=== PATIENT | male | born 1960 | race Caucasian/White ===

== ENCOUNTER → 2016-12-29 | Outpatient (CLI) | payer OTHER ==
[~2016-12-29] MED LIST: CLB/200 PO; DULO60CA44 PO; KETO2SHA; TRAZ50TA35 PO; VARD10TA PO
--- NOTE | 2016-12-29 17:53 | DIAGNOSTIC IMAGING REPORT ---
RIGHT LOWER EXTREMITY VENOUS DOPPLER CLINICAL HISTORY: Right calf tenderness. COMPARISON STUDY: No previous studies for comparison. TECHNIQUE: Sonography of the deep venous system of the right lower extremity was performed. Compression and augmentation were evaluated. FINDINGS: The right common femoral, superficial femoral and popliteal veins were compressible. Augmentation was normal. Flow was shown within the deep calf vessels. Note was made of occlusive superficial thrombus within the right greater saphenous vein that extended from the level of the mid thigh to the ankle. IMPRESSION: 1. Extensive occlusive superficial thrombus within the right greater saphenous vein. Thrombus extends from the level of the mid thigh to ankle. 2. No evidence of deep venous thrombus within the right lower extremity. Electronically signed by: Win Boudreaux M.D. 12/29/2016 5:52 PM Dictated Date/Time: 12/29/2016 5:49 PM
== END | disposition home or self-care (01) ==
LOC: C.ULTR 16:53
PROVIDERS: ATTEND Nurse Practitioner
DX: M79.661 Pain in right lower leg (principal)

== ENCOUNTER → 2017-09-09 | Outpatient (CLI) | payer SELFPAY ==
--- NOTE | 2017-09-09 14:04 | DIAGNOSTIC IMAGING REPORT ---
R VENOUS DOPP LOWER EXT UNILAT CLINICAL HISTORY: 57 years-old Male presenting with I80.3 Thrombophlebitis legM79.89 Right leg [id number] Pain. TECHNIQUE: Real-time grayscale and color and spectral Doppler ultrasound imaging of the veins of the right lower extremity was performed. Compression and augmentation were also utilized. COMPARISON: None. FINDINGS: Right: Common femoral vein: Patent. Greater saphenous vein: Patent. Deep femoral vein: Patent. Femoral vein: Patent. Popliteal vein: Patent. Calf veins: Patent. Other: Filling defect consistent with thrombus in a superficial vein along the dorsum of the right foot. IMPRESSION: 1. No evidence of deep venous thrombosis. 2. Superficial venous thrombosis along the dorsum of the right foot. Electronically signed by: Jermaine Mcneill M.D. 09/09/2017 2:03 PM Dictated Date/Time: 09/09/2017 2:02 PM
== END | disposition home or self-care (01) ==
LOC: C.ULTR 13:00
PROVIDERS: ATTEND Physician Assistant Medical
DX: M79.669 Pain in unspecified lower leg (principal); M79.89 Other specified soft tissue disorders; I80.3 Phlebitis and thrombophlebitis of lower extremities, unspecified; I82.811 Embolism and thrombosis of superficial veins of right lower extremity

== ENCOUNTER 2023-08-02 06:46 | Observation (INO) ==
--- NOTE | 2023-07-12 10:11 | PAT Medication Instructions ---
Medication Instructions Date of Service July 12, 2023 Home Medications Medication Instructions Recorded trazodone 50 mg tablet 100 mg (2 x 50 mg) PO HS PRN 04/21/23 insomnia #60 tabs multivitamin 1 tab PO QAM trazodone 50 mg tablet 100 mg (2 x 50 mg) PO HS PRN duloxetine 30 mg capsule,delayed release 30 mg PO QPM meloxicam 15 mg tablet 15 mg PO QAM ASK your surgeon for instructions meloxicam 15 mg tablet 15 mg PO QAM DO NOT take the morning of surgery multivitamin 1 tab PO QAM Take evening before surgery trazodone 50 mg tablet 100 mg (2 x 50 mg) PO HS PRN(if needed) duloxetine 30 mg capsule,delayed release 30 mg PO QPM Other Notes Nothing to eat or drink after midnight before surgery. If you have any questions please call us at [phone] or [phone] or [phone] or [phone]
--- NOTE | 2023-07-14 12:14 | Anesthesiology Consultation ---
Date of Service July 14, 2023 Assessment & Plan (1) Encounter for pre-operative examination: - Outpatient joint assessment: Patient is currently scheduled for inpatient pathway. If re-evaluated and patient/surgeon requests outpatient pathway, patient is acceptable candidate for outpatient joint program from anesthesia standpoint pending surgeon's office assessment of pt motivation/support/completion of same day joint program preop requirements. Chart Review Chart Review: Acceptable Risk for Surgery and Patient seen in Pre Admission Testing Teaching & Discussion Pre-Anesthesia Teaching/Discussion Notes: Instructed NPO after midnight before surgery, except medications with 15 cc of water. Medication instructions provided according to the PAT guidelines. History Surgery Operation Date: 08/02/23 12:30 Proposed Procedures p Left Total Hip Arthroplasty - Len Chaudhari MD Height/Weight Height: 5 ft 10 in Weight: 106.1 kg Allergies Allergy/AdvReac Type Severity Reaction Status Date / Time No Known Drug Allergies Allergy Unknown ` Verified 07/08/23 12:00 Medications Home Medications Medication Instructions Recorded Confirmed Last Taken multivitamin 1 tab PO QAM 05/05/20 07/08/23 05/04/20 trazodone 50 mg tablet 100 mg (2 x 50 mg) PO HS PRN 04/21/23 07/08/23 Unknown insomnia #60 tabs duloxetine 30 mg capsule,delayed 30 mg PO QPM 07/08/23 07/08/23 Unknown release meloxicam 15 mg tablet 15 mg PO QAM 07/08/23 07/08/23 Unknown Past Medical History Medical History (Updated 07/14/23 @ 12:16 by Shana Soto PA-C) Classic migraine with aura Depression Elevated blood-pressure reading without diagnosis of hypertension Hyperlipidemia Nicotine dependence Sarcoidosis stable Superficial thrombosis of leg right-several yrs ago Patient denies h/o stroke, seizures, heart attack, heart failure, DM, or blood transfusions. Exercise / Class Metabolic Activity II 4-5 Yardwork/Stairs/Walk up hill (denies chest discomfort or shortness of breath with 1 FOS) Past Family History Family History Father Hypertension Macular degeneration Aunt Migraine Grandmother Colorectal cancer Denies family history of Breast cancer Past Surgical History Surgical History (Updated 07/14/23 @ 12:45 by Shana Soto PA-C) H/O repair of left rotator cuff History of arthroscopy of hip left History of bronchoscopy 1990s-reaction to training agent for work-sarcoidosis diagnosed at that time S/P colonoscopy Status post right hip replacement Past Anesthesia History No Hx of Anesthesia Complications and No Family Hx of Anesthesia Complications History of PONV No Hx of PONV and No Hx of Motion Sickness Social History Smoking Status: Never smoker Do You Dip or Chew Tobacco: Yes (-advised) Smoking End Date: quit one month ago Hx Alcohol Use: No Hx Substance Use: Yes substance use type: crack/cocaine and opiates Substance Use Type Other:: percocet Last Used Substance Other:: Cocaine/percocet 09/03/2014, none since Review of Systems Patient denies chest pain, shortness of breath, dyspnea on exertion, snoring, witnessed apneas, reflux, fever, chills, cough, wheezing, or palpitations. Physical Exam Vital Signs Vitals BP 148/87 P 58 TEMP 98.2 SP02 94% on RA RESP 18 Physical Patient resting comfortably in chair in no acute distress, alert and oriented, responding appropriately throughout visit Full cervical extension range of motion without pain TMD 3.5 finger breadths Mallampati Score 2 Dentition: several caps/crowns, denies chipped or loose teeth, implants or bridges Lungs: normal respiratory effort. Good air movement, clear throughout to auscultation, no adventitious breath sounds Cardiac: regular rate and rhythm, no murmurs noted Carotid arteries: negative bruit bilat Lab Results Anesthesia Preop Results Results Anesthesia Widget: WBC 7.36 K/ul (4.8-10.8) 07/14/23 Hgb 15.2 g/dl (14.0-18.0) 07/14/23 Hct 43.4 % (42.0-52.0) 07/14/23 Plt 223 K/uL (130-400) 07/14/23 Na 138 mmol/L (136-145) 07/14/23 K 4.4 mmol/L (3.5-5.1) 07/14/23 Cl 106 mmol/L (98-107) 07/14/23 CO2 26 mmol/L (21-32) 07/14/23 BUN 20 mg/dl (6-23) 07/14/23 Creat 1.16 mg/dl (0.6-1.4) 07/14/23 Glucose Level 96 mg/dl (70-99(Fasting)) 07/14/23 PT 10.1 Seconds (9.0-12.0) 07/14/23 PTT 24 Seconds (21-31) 07/14/23 INR 0.9 (0.9-1.1) 07/14/23 Blood Type A Positive 07/14/23 Antibody Screen NEGATIVE 07/14/23 Testing Electrocardiogram Date: 07/14/23 Sinus bradycardia, rate 53 bpm RBBB Chest X-Ray Date: 07/14/23 Cardiomegaly and mild emphysema with no active disease in the chest.
--- NOTE | 2023-07-29 14:36 | History & Physical Report ---
Date of Service July 29, 2023 Assessment & Plan (1) Osteoarthritis of left hip: 63-year-old gentleman with a history of right hip replacement 12 years ago with advanced left hip arthritis. Has a history of a hip arthroscopy on the side in the past. He has failed conservative measures. He has noticed a leg length inequality. He would really like to have his left hip fixed. Plan we talked about treatment. Will go and proceed with left total hip replacement. The risks Mente this procedure explained to the patient and include but not limited to DVT PE infection neurological and vascular bleeding palm pain limb range of motion this is fairly with symptoms incomplete relief of symptoms need for further surgery in future fracture leg length inequality excetra. The patient understands and desires to proceed. Informed consent is obtained. I did talk about the leg length issue and we will do the best we can to make it is equal as possible. Patient does a history of substance abuse in the past and will try and limit his narcotic use. Will use Toradol. He is planned to be discharged to home using the [facility] home health program. We will likely use Xarelto for DVT prophylaxis due to his history of superficial phlebitis in the past. History of Present Illness Chief Complaint: . Left hip pain. Primary Care Provider: ANDREA Jacques Patient is a 63-year-old gentleman who presents for surgical treatment of his left hip. He has a long history of hip problems had his right hip replaced by Dr. Moody back in 2012. He is notices skin but leg length inequality ever since. He feels this is led to some back issues. He was going to have his left hip replaced but this Dr. Villeda only talked him into a hip arthroscopy back in 2013. This did help him for couple years but over the past 5 years he has developed increased pain discomfort and stiffness in his hip. Has become more painful. Limps all the time. He notices significant leg length inequality. He like to have his hip fixed. Allergies Allergy/AdvReac Type Severity Reaction Status Date / Time No Known Drug Allergies Allergy Unknown ` Verified 07/08/23 12:00 Home Medications Medication Instructions Recorded Confirmed Type multivitamin 1 tab PO QAM 05/05/20 07/08/23 History trazodone 50 mg tablet 100 mg (2 x 50 mg) PO HS PRN 04/21/23 07/08/23 Rx insomnia #60 tabs duloxetine 30 mg capsule,delayed 30 mg PO QPM 07/08/23 07/08/23 History release meloxicam 15 mg tablet 15 mg PO QAM 07/08/23 07/08/23 History Past Med/Surg History Medical History Depression Sarcoidosis stable Superficial thrombosis of leg right-several yrs ago Elevated blood-pressure reading without diagnosis of hypertension Nicotine dependence Hyperlipidemia Classic migraine with aura Surgical History H/O repair of left rotator cuff History of arthroscopy of hip left History of bronchoscopy 1990s-reaction to training agent for work-sarcoidosis diagnosed at that time Status post right hip replacement S/P colonoscopy Family History Father Hypertension Macular degeneration Aunt Migraine Grandmother Colorectal cancer Denies family history of Breast cancer Social History Smoking Status: Never smoker Tobacco Type: Smokeless Tobacco (Dip or Chew) Second Hand Exposure: No; Do You Dip or Chew Tobacco: Yes (-advised); Hx Alcohol Use: No Hx Substance Use: Yes Last Used Substance Other:: Cocaine/percocet 09/03/2014, none since Substance Use Type Other:: percocet Preferred Language: Sammarinese Communication Ability: Effective Visual Impairment: No Limitations Hearing Ability: Normal Legal Billing Analyst Required: No Beliefs That Will Affect Care: None marital status: Current Living Situation: Spouse Current Living Situation Comment: , son, grandson current occupational status: retired How many Children do You have: 2 Feels Safe at Home: Yes Childhood Exposure to Second-Hand Smoke: No Diet: regular caffeine: Yes during the past year weight has: remained stable Dental Care, Regularly: Yes Physical Activity Frequency: 5-6 Times per Week Physical Activity Frequency Comment: bicycling Seatbelt Use: always Sunscreen Use: Yes Assistive Devices: Cane Review of Systems All systems reviewed & are unremarkable except as noted in HPI & below. Physical Exam . Physical examination was a pleasant healthy middle-age male. Looks to be in pretty good health. Examination of the left hip reveals the patient ambulates with a slight bit of a limp. Is about a centimeter to a centimeter and half shorter on the side compared to the opposite side. He has a very stiff hip with very limited internal rotation to -10-15. Negative straight leg raise. No knee effusion. He is neurologically intact. Constitutional WD/WN, vitals as above Neck trachea midline, no thyromegaly Respiratory normal respiratory effort, lungs clear to auscultation Cardiovascular RRR, no murmur, no edema Results & Data Results & Data Laboratory Results . Diagnostic Findings . X-rays of the left hip reveal advanced hip arthritis. Is got complete loss of the superior joint space. Got osteophytes circumferentially around the acetabulum and femoral head. Fairly large medial osteophyte. The right hip replacement looks to be in acceptable position well ingrown. He does look a bit shorter on this left side compared to the right. PG Care Time/CCT Total # of Minutes Spent Total Time Spent with Patient: Total time spent is greater than 50% in coordination of care (as documented) at patient's floor/unit and/or counseling patient: Coding Level of Care Code None Diagnoses Osteoarthritis of left hip M16.12
[~2023-08-02 06:46] MED LIST changes: +BUPIVACAINE 0.5 % 5 MG/1 ML PF 10ML VIAL ONE; -CLB/200 PO; -DULO60CA44 PO; -KETO2SHA; -TRAZ50TA35 PO; -VARD10TA PO
--- NOTE | 2023-08-02 06:49 | History & Physical Bridge Note ---
Date of Service August 02, 2023 History & Physical Bridge Note I have examined the patient, reviewed the History & Physical and in the interval since the performance of the History & Physical I have noted the following changes of clinical significance: no changes noted
[2023-08-02] MEDS ORDERED: MIDAZOLAM HCL 1 MG/ML 2ML VIAL ONE (07:33)
[2023-08-02] MEDS ORDERED: PROPOFOL IV EMULSION 10 MG/ML 20 ML VIAL IV ONE (07:34)
[2023-08-02] MEDS: LR 60ML/HR IV SCH (07:44)
[2023-08-02] MEDS: LR 500ML BOLUS, THEN 15ML/HR IV SCH (07:44)
[2023-08-02] MEDS: METOCLOPRAMIDE HCL 10 MG TABLET PO SCH (07:45)
[2023-08-02] MEDS: ACETAMINOPHEN 500 MG TAB PO SCH ×2 (07:45→13:44)
[2023-08-02] MEDS: CeleBREX 200 MG CAP PO SCH (07:45)
[2023-08-02] MEDS: FAMOTIDINE 20 MG TAB PO SCH (07:46)
[2023-08-02] MEDS ORDERED: fentaNYL citrate PF 100 MCG/2 ML VIAL IV PRN (08:08)
[2023-08-02] MEDS ORDERED: ONDANSETRON INJ 2 MG/ML 2 ML VIAL IV PRN ×2 (08:08→11:17)
[2023-08-02] MEDS ORDERED: ePHEDrine sulfate 50 MG/ML AMP IV PRN ×2 (08:08→08:48)
[2023-08-02] MEDS ORDERED: ATROPINE SULFATE 0.1 MG/ML 10ML SYR IV PRN (08:08)
[2023-08-02] MEDS ORDERED: MoRPHine SULFATE PF 1 MG/ML 10 ML AMP/VIAL ONE (08:23)
[2023-08-02] MEDS: TRANEXAMIC ACID 1,000 MG **IV Pre-op IV SCH (08:41)
[2023-08-02] MEDS ORDERED: LACTATED RINGER'S 500 ML IV PRN (08:48)
[2023-08-02] MEDS ORDERED: NALBUPHINE HCL 5 MG in SYRINGE 0 ML IV PRN (08:48)
[2023-08-02] MEDS ORDERED: NALOXONE HCL 1 MG in SODIUM CHLORIDE 0.9% 1,000 ML IV PRN (08:48)
[2023-08-02] MEDS ORDERED: NALOXONE HCL 0.08 MG in SYRINGE 1.8 ML IV PRN (08:48)
[2023-08-02] MEDS ORDERED: PROMETHAZINE HCL 6.25 MG in SODIUM CHLORIDE 0.9% 50 ML IV PRN (08:48)
[2023-08-02] MEDS ORDERED: HYDROmorphone INJ 0.5 MG/0.5 ML SYR IV PRN ×2 (08:48→11:17)
[2023-08-02] MEDS ORDERED: NALOXONE HCL 0.4 MG/1 ML VIAL/CARP IV PRN ×2 (08:48→11:17)
[2023-08-02] MEDS ORDERED: diphenhydrAMINE 50 MG/ML VIAL IV PRN (08:48)
[2023-08-02] MEDS: ceFAZolin 2000MG 2,000 MG/15 ML SYR IV SCH ×2 (08:52→16:01)
[2023-08-02] MEDS ORDERED: DC INTRASPINAL MORPHINE SCH (09:00)
[2023-08-02] MEDS ORDERED: NO NARCOTICS OR SEDATIVES SCH (09:00)
[2023-08-02] MEDS ORDERED: ePHEDrine sulfate 50 MG/5 ML SYR ONE (09:18)
[2023-08-02] MEDS: BUPIVACAINE/EPINEPHRINE 0.5% MPF 1:200,000 30 ML VIAL ONE (09:43)
[2023-08-02] MEDS ORDERED: GLYCOPYRROLATE 0.2 MG/ML VIAL ONE (09:46)
--- NOTE | 2023-08-02 10:39 | Operative Report ---
PG Post Operative Report Pre & Post Diagnosis Operation Date: 08/02/23 08:50 Pre-Op Diagnosis: Left Hip Degeneratve Joint Disease Post-Op Diagnosis: Left Hip Degeneratve Joint Disease I identified the patient and participated in the time-out.: Yes Procedure Operation Date: 08/02/23 08:50 Actual Procedures p Left Total Hip Arthroplasty(Right) - Len Chaudhari MD Surgeon Len Chaudhari MD Community Relations Assistant Garrick Altman PA-C Estimated Blood Loss 100 Findings Consistent with Post-Op Diagnosis Operative findings with advanced left hip DJD. He extensive grade 4 [id number] disease of the femoral head and acetabulum. Large periacetabular osteophytes as well as osteophytes around the femoral neck. Very stiff hip. He had a significant leg length inequality preoperatively about a centimeter and a half. Specimens Left femoral head sent for pathology. Anesthesia Type Spinal MAC Complications none Disposition Accompanied Patient To Recovery: No Indications Patient is a 63-year-old gentleman had a long history of hip problems. He has right hip replaced in the past and 7 pretty well but had a significant leg length inequality ever since. Over time he developed increased pain discomfort in his left hip. Does have a history of hip arthroscopy years ago. He failed all conservative measures. He elected proceed with total hip arthroplasty. We discussed the leg length and inequality in depth and I told we could probably correct some of this but not sure all of that for risk of nerve palsy and excessive soft tissue tension. Description of Procedure Operative implants consist of: 1 Biomet G7 size 54 mm acetabular shell. 2. [place] hole dough mixer. 3. 6.5 cancellous acetabular screws 135 mm length by 25 mm length. 4. Highly cross-linked polyethylene liner with a 54 mm outer diam and 36 mm inner diameter. 5. DePuy Corail size 12 KLA femoral stem. 6. +8.5/36 mm ceramic articular ball. The patient was taken to the operating, identified, placed on the operating table in the supine position. All contact areas were appropriately padded. IV antibiotics tried by anesthesia team. A spinal anesthetic and been implemented holding area. The patient was then placed in the right lateral decubitus position. Axillary roll was placed. The distal Birkett position was used for positioning. The left hip and leg were then prepped and draped in usual sterile fashion. A posterolateral approach the left hip was then performed to a curvilinear incision centered over the greater trochanter. Sharp dissection was carried through subcutaneous tissue down to level the IT band gluteal fascia. The IT band gluteal fascia incised longitudinally in line with skin incision. The greater trochanter bursa was excised. The piriformis and external rotators along with the posterior hip joint capsule were then released in the posterior aspect of the hip as a single layer. Great care was taken throughout the procedure protect the sciatic nerve at all times. Hip was internally rotated and dislocated. Femoral neck osteotomy cut was made with a Final Cut about 10 mm above the lesser trochanter. Femoral head was removed and sent for pathology. The femur was retracted anteriorly. Attention drawn the acetabulum. The acetabular labrum was excised. The pulmonary fat was excised. Sequential reaming the acetabular was then performed again with size 47 progressing up to 53. I reamed a little bit with a 54 reamer and then placed a 54 mm Biomet G7 acetabular shell in about 40 degrees lateral opening and 20 degrees of anteversion. It was fixed with two 6.5 cancellous screws. Some large periacetabular osteophytes removed anteriorly and inferiorly. A trial liner was placed. Attention drawn the femur. The proximal femur was then with a Unocoin cutter followed by canal finder. Then broached beginning size 8 and progressing looks well. I got excellent fitted to 12. Did not think I could fit the 13 down. We trialed the hip and the +5 artic ular ball was fully stable but I really wanted to increase his length a bit more so I did place a +8.5 neck length articular ball. The hip was fully stable. Soft tissue tension seemed appropriate. I was concerned to a length any further for concerns for nerve palsy. We elect place his implants. All trial implants were removed. [place] hole dough mixer was placed. Highly cross- linked polyethylene liner was placed. A size 12 KLA femoral stem was impacted in position. A +8.5/36 mm ceramic articular ball was placed. Hip was located once again found to be stable. Attention drawn to closing. The wound was irrigated coconuts pulsatile lavage solution. I did inject locally with 60 cc of half percent Marcaine with epinephrine. The posterior capsule and external rotators were then repaired through drill holes in the posterior trochanter with #2 Tycron suture. The IT band gluteal fascia then closed in 1 PDS suture running fashion through subcutaneous tissue then closed in 2 layers of the deep layer #1 Vicryl suture and subcutaneous tissues with 2-0 Dexon suture in a buried interrupted fashion. Skin was closed with skin dorys. Leg was then cleaned and dried and a sterile dressing with Xeroform, 4 fours, ABD pad and foam tape was applied. Patient then transferred to the recovery room in stable condition. Patient tolerated procedure well and there are no complications. Garrick Altman, my physician child care center assistant director, was present for the entire procedure. His assistance was essential and required for appropriate patient positioning, prepping and draping, surgical exposure, performing the technical details of the operation, placement the implants, closure of the wound, and placement of the sterile bandage. I attest to the content of the Intraoperative Record and any orders documented therein. Any exceptions are noted below.
[2023-08-02] MEDS: SODIUM CHLORIDE 0.9% 1,000 ML IV SCH ×2 (10:45→13:10)
[2023-08-02] MEDS ORDERED: traZODone HCL 100 MG TAB PO PRN (11:17)
[2023-08-02] MEDS ORDERED: traMADol HCL 50 MG TABLET PO PRN (11:17)
[2023-08-02] MEDS ORDERED: METOCLOPRAMIDE HCL INJ 5 MG/ML 2 ML VIAL IV PRN (11:17)
[2023-08-02] MEDS ORDERED: ALUMINUM/MAGNESIUM SUSP 30 ML UDC PO PRN (11:17)
[2023-08-02] MEDS ORDERED: bisacodyL 10 MG SUPP PR PRN (11:17)
[2023-08-02] MEDS ORDERED: MAGNESIUM HYDROXIDE SUSP 30 ML UDC PO PRN (11:17)
[2023-08-02] MEDS ORDERED: KETOROLAC 30 MG/ML VIAL IV SCH (11:17)
--- NOTE | 2023-08-02 11:17 | XRay Report ---
XR hip 1V LT w pelvis CLINICAL HISTORY: IN PACU - Post Surgical TECHNIQUE: 1 view of the left hip and single frontal view of the pelvis were obtained. Comparison: Comparison is made to hip radiograph 07/27/2023 FINDINGS: Patient is status post total hip arthroplasty with expected postsurgical changes including soft tissu e swelling and subcutaneous emphysema. Stable right arthroplasty of the hip. IMPRESSION: Expected postoperative appearance status post placement of total hip arthroplasty. ACT 112: Negative or not required by law. Electronically signed by: Damion Ramos M.D. 08/02/2023 11:16 AM
[2023-08-02] MEDS: MoRPHine SULFATE PF 1 MG/ML 10 ML AMP/VIAL INT SPINAL ONE (12:50)
[2023-08-02] MEDS ORDERED: ACETAMINOPHEN 500 MG TAB PO SCH (14:00)
--- NOTE | 2023-08-02 15:34 | Anesthesiology Progress Note ---
Date of Service August 02, 2023 Anesthesia Post Procedure Vital Signs Vital Signs: Temp Pulse Pulse Pulse Resp BP BP 08/02/23 15:07 16 08/02/23 14:15 36.3 C L 58 L 16 157/88 H 08/02/23 14:10 18 08/02/23 13:05 36.2 C L 58 L 18 146/76 H 08/02/23 13:05 18 08/02/23 12:10 36.2 C L 54 L 16 149/78 H 08/02/23 12:00 20 08/02/23 11:37 36.4 C L 53 L 16 142/86 H 08/02/23 11:23 36.1 C L 56 L 16 126/71 08/02/23 11:10 16 08/02/23 11:00 36.4 C L 61 13 131/64 08/02/23 10:50 68 15 110/68 08/02/23 10:40 61 20 111/67 08/02/23 10:30 66 22 119/62 08/02/23 10:21 36.2 C L 76 19 130/62 08/02/23 07:17 36.4 C L 58 L 20 149/86 H Pulse Ox O2 Del Method O2 Flow Rate 08/02/23 15:07 93 08/02/23 14:15 95 Room Air 08/02/23 14:10 95 08/02/23 13:05 98 Room Air 08/02/23 13:05 99 08/02/23 12:10 99 Room Air 08/02/23 12:00 96 08/02/23 11:37 95 Room Air 08/02/23 11:23 95 Room Air 08/02/23 11:10 95 08/02/23 11:00 94 Room Air 08/02/23 10:50 95 Room Air 08/02/23 10:40 93 Room Air 08/02/23 10:30 98 Oxymask 4 08/02/23 10:21 96 Oxymask 6 08/02/23 07:17 95 Room Air Transfer of Care Handoff Completed per policy Notes Mental Status: alert / awake / arousable and participated in evaluation Patient Amnestic to Procedure: Yes Nausea / Vomiting: adequately controlled Pain: adequately controlled Airway Patency, RR, SpO2: stable & adequate BP & HR: stable & adequate Hydration State: stable & adequate Neuraxial Anesthesia: was administered and sensory block is resolving Anesthetic Complications: no major complications apparent and Pt Satisfied with anesthetic care
[2023-08-02] MEDS: TRANEXAMIC ACID / 0.7% NACL 1,000 MG/100 ML BAG IV SCH (16:01)
[2023-08-02] MEDS: KETOROLAC TROMETHAMINE 15 MG/ML VIAL IV SCH (17:39)
[2023-08-02] MEDS: ASCORBIC ACID 500 MG TAB PO SCH (17:39)
[2023-08-02] MEDS: DOCUSATE SODIUM 100 MG CAP PO SCH (20:28)
[2023-08-02] MEDS: DULoxetine HCL 30 MG CAP PO SCH (20:28)
[2023-08-02] MEDS: SENNA 8.6 MG TAB PO SCH (20:28)
[2023-08-02] MEDS ORDERED: SENNA 8.6 MG TAB PO SCH (21:00)
[2023-08-02] MEDS: COUGH DROP (SUGAR FREE) LOZ 24 LOZ/1 BOX BUCCAL ONE (21:10)
[2023-08-02] MEDS: ONDANSETRON INJ 2 MG/ML 2 ML VIAL IV PRN (21:52)
[2023-08-03] MEDS ORDERED: ONDANSETRON INJ 2 MG/ML 2 ML VIAL IV PRN (02:49)
[2023-08-03] MEDS ORDERED: traMADol HCL 50 MG TABLET PO PRN (02:49)
[2023-08-03] MEDS ORDERED: HYDROmorphone INJ 0.5 MG/0.5 ML SYR IV PRN (02:49)
[2023-08-03 06:29] LABS: Basophils # (auto) 0.05 K/uL (0.00-0.20); Basophils % (auto) 0.5 %; Eosinophils # (auto) 0.31 K/uL (0.00-0.50); Eosinophils % (auto) 2.9 %; Hematocrit (blood only) 37.5 % (42.0-52.0); Hemoglobin 13.1 g/dl (14.0-18.0); Immature Granulocytes # (auto) 0.08 K/uL (0.01-0.20); Immature Granulocytes % (auto) 0.7 %; Lymphocytes # (auto) 1.09 K/uL (1.20-3.40); Lymphocytes % (auto) 10.2 %; Mean Corpuscular Hemoglobin 31.1 pg (25.0-34.0); Mean Corpuscular Hgb Conc 34.9 g/dL (32.0-36.0); Mean Corpuscular Volume 89.1 fL (80.0-100.0); Mean Platelet Volume 11.1 fL (9.4-12.4); Monocytes # (auto) 0.83 K/uL (0.11-0.59); Monocytes % (auto) 7.8 %; Neutrophils # (auto) 8.34 K/uL (1.40-6.50); Neutrophils % (auto) 77.9 %; Platelet Count 179 K/uL (130-400); RDW Standard Deviation 38.8 fL (36.4-46.3); Red Blood Count 4.21 M/uL (4.70-6.10)
[2023-08-03 06:45] LABS: BUN Creatinine Ratio 16.1 (10-20); Calcium 8.2 mg/dl (8.6-10.3); Creatinine Clr Calc Pharmacy 78.9 ml/min; Est GFR (African American) 79.5 ml/min; Est GFR (Non-African American) 68.6 ml/min
[2023-08-03] MEDS: dexAMETHasone 10 MG in SYRINGE 0 ML IV SCH (08:00)
[2023-08-03] MEDS: TAMSULOSIN HCL 0.4 MG CAP PO SCH (08:01)
[2023-08-03] MEDS: MULTIVITAMIN TAB PO SCH (08:01)
[2023-08-03] MEDS ORDERED: NON-FORMULARY MEDICATION (Multivitamin Tablet) PO SCH (09:00)
--- NOTE | 2023-08-03 09:32 | Surgery Progress Note ---
Date of Service August 03, 2023 Assessment & Plan (1) Status post left hip replacement: Plan: 63-year-old gentleman postop day 1 from hip replacement. He is doing well. Pain is controlled. Hips located. He is neurologically intact. Plan: 1. DVT prophylaxis including thigh-high teds, SCDs, Xarelto for 30 days. 2. PT/OT. Weight-bear as tolerated. Total hip protocol. Needs to obey hip precautions. 3. Pain control doing okay with current pain regimen. 4 disposition plan to discharge home with some home health today if he does okay in therapy. Admission and Anticipated Discharge Date Admission Date: August 02, 2023 Subjective 63-year-old gentleman postop bleed day 1 from total hip replacement. He is doing pretty well. He got up and walk last night. Pain is very manageable. Denies any chest pain or shortness of breath. Not feeling dizzy or lightheaded. Hoping to go home today. Physical Exam Physical Exam: Physical examination is a pleasant middle-age male. Lying in bed looks pretty comfortable. Examination of the hip reveals the dressing be clean dry and intact. Thigh is soft and supple. The hips located. He is neurologically intact. Constitutional: WD/WN, vitals as above Respiratory: normal respiratory effort, lungs clear to auscultation Cardiovascular: RRR, no murmur, no edema Gastrointestinal (Abdomen): normal bowel sounds, soft, nontender, no hepatosplenomegaly Results & Data Vital Signs (Past 12 Hours) Vital Signs Temp Pulse Pulse Resp BP Pulse Ox O2 Del Method 08/03/23 09:27 36.4 C L 61 55 L 16 156/72 H 96 08/03/23 07:34 36.4 C L 55 L 16 156/72 H 96 Room Air 08/03/23 03:30 37.1 C 65 18 134/79 97 Room Air 08/03/23 03:22 16 96 08/03/23 02:17 16 93 08/03/23 01:13 16 94 08/03/23 00:20 16 93 08/02/23 23:30 36.9 C 60 18 156/82 H 94 Room Air 08/02/23 23:14 18 95 08/02/23 22:15 18 96 Laboratory Results Hemoglobin is 13.1. Hematocrit is 37.5 electrolytes are stable. PG Care Time/CCT Total # of Minutes Spent Total Time Spent with Patient: Total time spent is greater than 50% in coordination of care (as documented) at patient's floor/unit and/or counseling patient: Coding Level of Care Code None Diagnoses Status post left hip replacement Z96.642
[2023-08-03] MEDS: RIVAROXABAN 10 MG TABLET PO SCH (10:09)
--- NOTE | 2023-08-03 12:19 | Discharge Summary ---
Date of Service August 03, 2023 Admission HPI (Per Admitting) Patient is a 63-year-old gentleman who presents for surgical treatment of his left hip. He has a long history of hip problems had his right hip replaced by Dr. Moody back in 2012. He is notices skin but leg length inequality ever since. He feels this is led to some back issues. He was going to have his left hip replaced but this Dr. Villeda only talked him into a hip arthroscopy back in 2013. This did help him for couple years but over the past 5 years he has developed increased pain discomfort and stiffness in his hip. Has become more painful. Limps all the time. He notices significant leg length inequality. He like to have his hip fixed. Admission Exam (Per Admitting) . Physical examination was a pleasant healthy middle-age male. Looks to be in pretty good health. Examination of the left hip reveals the patient ambulates with a slight bit of a limp. Is about a centimeter to a centimeter and half shorter on the side compared to the opposite side. He has a very stiff hip with very limited internal rotation to -10-15. Negative straight leg raise. No knee effusion. He is neurologically intact. Principal Diagnosis Same as "Discharge Diagnosis" noted below under Discharge Instructions. Discharge Exam Physical Exam: Physical examination is a pleasant middle-age male. Lying in bed looks pretty comfortable. Examination of the hip reveals the dressing be clean dry and intact. Thigh is soft and supple. The hips located. He is neurologically intact. Constitutional: WD/WN, vitals as above Respiratory: normal respiratory effort, lungs clear to auscultation Cardiovascular: RRR, no murmur, no edema Gastrointestinal (Abdomen): normal bowel sounds, soft, nontender, no hepatosplenomegaly Discharge Data Procedures Performed Operation Date: 08/02/23 08:50 Actual Procedures p Left Total Hip Arthroplasty(Right) - Len Chaudhari MD Hospital Course (1) Status post left hip replacement: On August 02, 2023 Jose arrived at [facility] and underwent a left total hip arthroplasty performed by Dr. Chaudhari with no complications. He had a spinal anesthetic. Postoperatively, he was transferred to the PACU for immediate postoperative management and then transferred to the general orthopedic floor in stable condition. His hospital course was uneventful. On postoperative day #1, his vital signs were stable and his pain was well-control led. He was started on Xarelto for DVT prophylaxis. He participated well with physical therapy working on ambulation and range of motion exercises. He was then discharged home in stable condition. He will follow-up with Dr. Chaudhari in 2 weeks for postoperative management. PG Care Time/CCT Total # of Minutes Spent Total Time Spent with Patient: Total time spent is greater than 50% in coordination of care (as documented) at patient's floor/unit and/or counseling patient: Discharge Plan Discharge Items Patient Disposition: Home - Home Health Services Reason For Visit: Left Hip Degeneratve Joint Disease Discharge Diagnosis: Left Hip Replacement Activity: Per Instructions section Activity Comment: Follow/Obey hip prections at all times. Weightbearing: Full weightbearing Weightbearing Comment: Weightbear as tolerated obeying hip precautions at all times. Non-emergency contact: Surgeon Call non-emergency contact if: you have any medication questions Follow-up/Referrals: Julianne Pfeiffer CRNP [Primary Care Provider] - Diet: Regular Addtl Attending Provider Instructions: ACTIVITY RECOMMENDATIONS: Physical Therapy: * Aggressive physical therapy is not usually needed. You will learn to take care of yourself safely and walk. * Follow the "Hip Precautions Instructions." * In some cases, the licensed social worker at the hospital will arrange to have a therapist come to your house for the first couple of weeks to help you learn these skills. * You need to practice on your own or with the help of a family member as needed. * When you learn these skills, most of the therapy can be done on your own. Home Exercise: * You were shown a series of exercises in the hospital. Do these exercises three to four times each day including the exercises you were shown in physical therapy. Walking: * Get up and walk several times each day. For the first four weeks, try not to stand or walk for more than one hour at a time. If you do stand or walk for more than one hour, you will not hurt anything, but your leg will likely swell. * As you feel comfortable, you may change from the walker or crutches to a cane and then to independent walking. MEDICATIONS: New Medicine: * You will likely be taking one or more of these medicines: 1. Tramadol - Take, as directed, when you need it, every six hours to control your pain. 2. Xarelto - Thins your blood to lessen the chance of forming a blood clot. * The most common side effects of pain medicine and iron are nausea and constipation. If nausea or constipation is too much of a problem or if you have any questions about your new medicines or doses, call [facility] at [phone]. We will try to help you manage these issues. "VERY IMPORTANT TO READ AND REVIEW" Pain: * The immediate post-operative period after hip replacement surgery is often quite painful. * You are given a prescription for pain medicine. You should take it, as directed, when you need it, especially before physical therapy and before going to bed. Pain that interferes with sleep is very common and can last several months. * You will likely need pain medicine for the first two to four weeks. It will not stop all of the pain. The pain will lessen and as you feel better, you may change to milder pain medicine such as Tylenol. * The most common side effects of pain medicine are nausea and constipation, so don't take more than you need. SPECIAL CARE INSTRUCTIONS: TEDs/Elastic Stockings: * The white elastic stockings help limit swelling and prevent blood clots from forming in your legs. The more you wear them, the more they work. * Wear them for six weeks. Incision Site Care: * Remove dressing postoperative day 2 and then shower. Keep direct shower pressure off the incision site. * After showering, cover dorys with dry gauze and change daily or more frequently if the dressing is getting saturated with drainage. * May completely stop using bandage if wound is dry and no drainage * Big Flat are removed between 2 and 3 weeks post-op. If your follow-up appointment is made before 2 weeks, please have your appointment re- scheduled. It is too early to remove the dorys. Prevention of Infection: * Take antibiotics one hour before any dental cleaning, dental work, urological procedure, gastrointestinal procedure or any invasive surgery in order to prevent your new joint from getting infected. * You may get the antibiotics from the doctor performing the procedure or you may call our office at before and we will call in a prescription to the pharmacy of your choice. Things to Watch For: * Drainage from the incision site that occurs more than one week after your surgery. * Severely increased leg pain or swelling. * Increased redness at the incision site. * Fever above 102 degrees Fahrenheit. * Unusual chest pain or shortness of breath. * Unusual pain or burning with urination. Call [facility] at with any of the above problems or if you have any questions about your medicines or recovery. FOLLOW UP VISIT: Make an appointment to see your doctor for approximately two weeks after surgery for a progress check and staple removal by calling the office at . Pending Studies at Discharge: No Stand-Alone Forms: [facility], Smoking Cessation Medications and DC Order Prescriptions: Continued tramadol 50 mg tablet 50 - 100 mg PO Q6 PRN (Reason: pain) Qty: 40 0RF Rx Instructions: Take as needed for pain ondansetron 4 mg tablet,disintegrating 4 mg PO Q8 PRN (Reason: nausea) Qty: 20 1RF Rx Instructions: Take as needed for nausea sennosides [Senokot] 8.6 mg tablet 8.6 mg PO BID 14 Days Qty: 28 0RF Rx Instructions: Take two times a day to prevent/treat constipation acetaminophen [Tylenol Extra Strength] 500 mg tablet 1,000 mg PO TID 30 Days Qty: 180 0RF Rx Instructions: Take 3 times per day to lessen pain. tamsulosin [Flomax] 0.4 mg capsule 0.4 mg PO DAILY Qty: 7 0RF Rx Instructions: Begin night BEFORE surgery to prevent urinary retention Xarelto 10 mg tablet 10 mg PO DAILY 30 Days Qty: 30 0RF Rx Instructions: Take 1 tablet daily for 30 days to prevent blood clots trazodone 50 mg tablet 100 mg PO HS PRN (Reason: insomnia) Qty: 60 5RF multivitamin Tablet 1 tab PO QAM meloxicam 15 mg tablet 15 mg PO QAM duloxetine 30 mg capsule,delayed release(DR/EC) 30 mg PO QPM Admission Data Admit Date/Time: 08/02/23 10:31 Attending Provider: Len Chaudhari Admit Provider: Len Chaudhari Primary Care Provider: Julianne Pfeiffer Other Providers: [facility] Other Interventions: Discharge Summary Assessment (RN) Last Done: 08/03/23 09:27
== END 2023-08-03 10:24 | disposition home health service (06) ==
LOC: 3E 06:46 → ASU 06:46
DX: Z79.899 Other long term (current) drug therapy; Z96.641 Presence of right artificial hip joint; D86.9 Sarcoidosis, unspecified; E66.9 Obesity, unspecified; Z79.1 Long term (current) use of non-steroidal anti-inflammatories (NSAID); M25.752 Osteophyte, left hip; G43.E09 Chronic migraine with aura, not intractable, without status migrainosus; Z68.32 Body mass index [BMI] 32.0-32.9, adult; M16.12 Unilateral primary osteoarthritis, left hip

== ENCOUNTER 2024-01-04 03:09 | Observation (INO) ==
[2024-01-04] MEDS: SODIUM CHLORIDE 0.9% 1,000 ML IV SCH (03:37)
[2024-01-04] MEDS: ONDANSETRON INJ 2 MG/ML 2 ML VIAL IV STA (03:38)
[2024-01-04] MEDS: KETOROLAC 30 MG/ML VIAL IV STA (03:39)
[2024-01-04 03:49] LABS: Appearance Urine Clear (Clear); Bilirubin Urine Negative (Negative); Blood Urine Negative (Negative); Color Urine Yellow; Glucose Urine UA Negative (Negative); Ketones Urine Negative (Negative); Leukocyte Esterase Urine Negative (Negative); Nitrite Urine Negative (Negative); Protein Urine Negative (Negative); Specific Gravity Urine 1.025 (1.000-1.030); Urobilinogen Urine Negative (Negative); pH Urine 5.5 (4.5-7.5)
[2024-01-04 04:02] LABS: Basophils # (auto) 0.04 K/uL (0.00-0.20); Basophils % (auto) 0.4 %; Eosinophils # (auto) 0.18 K/uL (0.00-0.50); Eosinophils % (auto) 1.8 %; Hematocrit (blood only) 44.5 % (42.0-52.0); Immature Granulocytes # (auto) 0.06 K/uL (0.01-0.20); Immature Granulocytes % (auto) 0.6 %; Lymphocytes # (auto) 0.66 K/uL (1.20-3.40); Lymphocytes % (auto) 6.6 %; Mean Corpuscular Hemoglobin 29.8 pg (25.0-34.0); Mean Corpuscular Hgb Conc 33.7 g/dL (32.0-36.0); Mean Corpuscular Volume 88.3 fL (80.0-100.0); Mean Platelet Volume 10.8 fL (9.4-12.4); Monocytes # (auto) 0.74 K/uL (0.11-0.59); Monocytes % (auto) 7.4 %; Neutrophils # (auto) 8.29 K/uL (1.40-6.50); Neutrophils % (auto) 83.2 %; Platelet Count 189 K/uL (130-400); RDW Coefficient of Variation 12.4 % (11.5-14.5); Red Blood Count 5.04 M/uL (4.70-6.10); White Blood Count 9.97 K/ul (4.8-10.8)
[2024-01-04 04:07] LABS: Albumin Level 4.5 gm/dl (3.4-5.0); BUN Creatinine Ratio 15.8 (10-20); Bilirubin,Total 0.7 mg/dl (0.2-1.0); Creatinine Clr Calc Pharmacy 52.4 ml/min; Est GFR (African American) 49.7 ml/min; Est GFR (Non-African American) 42.9 ml/min; Globulin 2.3 gm/dl (2.5-4.0); Potassium 3.8 mmol/L (3.5-5.1); Total Protein 6.8 gm/dl (6.0-8.3)
--- NOTE | 2024-01-04 04:34 | Urology Consultation ---
Date of Consultation January 04, 2024 Assessment & Plan (1) Nephrolithiasis: I discussed with the treating clinician emergency department and the patient is being admitted on the hospitalist service. From a urologic perspective we recommend the following: Provide analgesics Provide antiemetics Provide IV fluid for hydration Implement n.p.o. status The patient reevaluated by our dayshift team on 12/27/2023 and a determination will be made if patient cystoscopic intervention will be moved to an earlier date as the patient feels he cannot be discharged home as he does not feel he could manage his current pain as an outpatient Additional recommendations be forthcoming based on his clinical course as unfolds History of Present Illness Reason for Consultation: Nephrolithiasis History of Present Illness This is a 63-year-old male who presented to the emergency department secondary to left flank pain. Patient notes that he has a known left kidney stone. He underwent a CT scan of the abdomen pelvis on 12/23/2023 that showed a 1 cm left renal pelvis calculus resulting in mild left hydronephrosis. The patient has been seen by [facility] on 01/02/2024 and patient notes that he was tentatively scheduled for a cystoscopy with intervention on his nephrolithiasis in mid January of this year. The patient notes that he leads an active lifestyle when he is feeling well as he is able to ride a bike multiple times per week. He says he does not get chest pain or shortness of breath with physical activity. He notes he has undergone a hip replacement earlier this year which was without complication. Patient presented to the emergency department secondary to left flank pain with some radiation to his left groin with associated nausea and vomiting. He denies any fevers, shakes, or chills. Patient notes that he is urinating small amounts without any dysuria or hematuria. Since arrival to the emergency department today he has had labs and imaging which independent reviewed. CBC revealed white blood cell count, hemoglobin, hematocrit, platelet count were all normal. Chemistry profile showed sodium and potassium within normal range. His BUN and creatinine were 26 and 1.6. (This level of creatinine is a slight elevation from his baseline). Urinalysis was not indicative infection. At the time my interview the patient was resting comfortably in bed he was in no distress Allergies Allergy/AdvReac Type Severity Reaction Status Date / Time No Known Drug Allergies Allergy Unknown ` Verified 11/29/23 08:33 Home Medications Medication Instructions Recorded Confirmed Type multivitamin 1 tab PO QAM 05/05/20 08/02/23 History acetaminophen 500 mg tablet 1,000 mg (2 x 500 mg) PO TID pain 07/30/23 11/29/23 Rx (Tylenol Extra Strength) 30 days #180 tabs duloxetine 30 mg capsule,delayed 30 mg PO QPM #30 caps 10/31/23 11/29/23 Rx release meloxicam 15 mg tablet 15 mg PO QAM #30 tabs 11/04/23 11/29/23 Rx trazodone 50 mg tablet 50 mg PO HS PRN insomnia #60 tabs 11/29/23 11/29/23 Rx ondansetron 8 mg disintegrating 8 mg PO Q8H PRN nausea and 01/02/24 01/02/24 Rx tablet vomiting #30 tabs oxycodone-acetaminophen 5 mg-325 1 tab PO Q8H PRN pain #10 tabs 01/02/24 4 Rx mg tablet (Percocet) phenazopyridine 200 mg tablet 200 mg PO TID 6 doses #10 tabs 01/02/24 01/02/24 Rx (Pyridium) Patient History Medical History Encounter for pre-operative examination Osteoarthritis of left hip Depression Sarcoidosis stable Superficial thrombosis of leg right-several yrs ago Surgical History H/O repair of left rotator cuff History of arthroscopy of hip left History of bronchoscopy 1990s-reaction to training agent for work-sarcoidosis diagnosed at that time Status post right hip replacement S/P colonoscopy Family History Father Hypertension Macular degeneration Aunt Migraine Grandmother Colorectal cancer Denies family history of Breast cancer Social History Smoking Status: Former smoker Tobacco Type: Smokeless Tobacco (Dip or Chew) Second Hand Exposure: No; Do You Dip or Chew Tobacco: Yes (-advised); Hx Alcohol Use: No Hx Substance Use: Yes Last Used Substance Other:: Cocaine/percocet 09/03/2014, none since Substance Use Type Other:: percocet Preferred Language: Swedish Communication Ability: Effective Visual Impairment: No Limitations Hearing Ability: Normal Child Support Investigator Required: No Beliefs That Will Affect Care: None marital status: Current Living Situation: Spouse Current Living Situation Comment: , son, grandson current occupational status: retired How many Children do You have: 2 Feels Safe at Home: Yes Childhood Exposure to Second-Hand Smoke: No Diet: regular caffeine: Yes during the past year weight has: remained stable Dental Care, Regularly: Yes Physical Activity Frequency: 5-6 Times per Week Physical Activity Frequency Comment: bicycling Seatbelt Use: always Sunscreen Use: Yes Assistive Devices: Walker Review of Systems Review of Systems: All systems reviewed & are unremarkable except as noted in HPI & below Physical Exam Constitutional: WD/WN, vitals as above Eyes: no conjunctival abnormality ENMT: Ears: no hearing impairment and no external ear abnormality Mouth: no oropharynx abnormality Neck: trachea midline Respiratory: normal respiratory effort; no respiratory distress and no labored breathing Cardiovascular: Rate/Rhythm: regular rate and regular rhythm Gastrointestinal (Abdomen): Abdomen is soft and nondistended. There is nonrigid. There is no pain with palpation. There is no rebound tenderness or guarding Musculoskeletal: No calf tenderness. Feet are warm and well-perfused Skin: no rashes Neurologic: moves all extremities Psychiatric: A+Ox3, euthymic affect Genitourinary: Slight CVA tenderness with percussion noted on the left none on the right Results & Data Vital Signs (Past 12 Hours) Vital Signs Temp Pulse Resp BP Pulse Ox O2 Del Method 01/04/24 04:06 59 L 20 162/99 H 94 Room Air 01/04/24 03:54 63 01/04/24 03:11 36.6 C 61 16 172/93 H 94 Room Air PG Care Time/CCT Total # of Minutes Spent Total Time Spent with Patient: Total time spent is greater than 50% in coordination of care (as documented) at patient's floor/unit and/or counseling patient: Coding Level of Care Code 16900 INT INP/OBS CARE 3/75MIN Diagnoses Nephrolithiasis N20.0
--- NOTE | 2024-01-04 05:07 | History & Physical Report ---
Date of Service January 04, 2024 Assessment & Plan (1) Nephrolithiasis: Plan: 63yo male with severe left flank pain, known renal stone. UA with no bacteria -Admit to medical -Maintain NPO status -LR at 125mL/hr -Pain control with Toradol PRN, Tylenol PRN - patient prefers avoidance of narcotics for pain management if possible -Zofran PRN -Urology consultation appreciated History of Present Illness Chief Complaint: flank pain Primary Care Provider: ANDREA Jacques Jose Glass is a 63yo male presenting with left flank pain. Patient was found to have a 1cm stone in the left renal pelvis with mild left hydronephrosis, urothelial thickening and stranding on CT imaging 12/23/23. He was seen by Urology outpatient on 01/02 24 and was planning to have elective stone removal on 01/23/24. Over the last several days he has been having increased left flank pain. Since yesterday the pain has become very severe, 10. He took a Percocet with some relief but woke again from sleep at 01:30 with severe pain, nausea. He denies fever, chills, dysuria. No hematuria. No additional complaints at this time. In the ER he is afebrile, HD stable, NAD Allergies Allergy/AdvReac Type Severity Reaction Status Date / Time No Known Drug Allergies Allergy Unknown ` Verified 11/29/23 08:33 Home Medications Medication Instructions Recorded Confirmed Type multivitamin 1 tab PO QAM 05/05/20 01/04/24 History acetaminophen 500 mg tablet 1,000 mg (2 x 500 mg) PO TID pain 07/30/23 01/04/24 Rx (Tylenol Extra Strength) 30 days #180 tabs duloxetine 30 mg capsule,delayed 30 mg PO QPM #30 caps 10/31/23 01/04/24 Rx release meloxicam 15 mg tablet 15 mg PO QAM #30 tabs 11/04/23 01/04/24 Rx trazodone 50 mg tablet 50 mg PO HS PRN insomnia #60 tabs 11/29/23 01/04/24 Rx ondansetron 8 mg disintegrating 8 mg PO Q8H PRN nausea and 01/02/24 01/02/24 Rx tablet vomiting #30 tabs oxycodone-acetaminophen 5 mg-325 1 tab PO Q8H PRN pain #10 tabs 01/02/24 01/02/24 Rx mg tablet (Percocet) phenazopyridine 200 mg tablet 200 mg PO TID 6 doses #10 tabs 01/02/24 01/02/24 Rx (Pyridium) Past Med/Surg History Problem List Nephrolithiasis Hydronephrosis concurrent with and due to calculi of kidney and ureter (Acute) Hydronephrosis of left kidney (Acute) Left nephrolithiasis (Acute) Microscopic hematuria Low back pain radiating to right leg Status post left hip replacement Acute URI (Acute) Left hip pain Depression Elevated blood-pressure reading without diagnosis of hypertension Acute bacterial bronchitis Thrombophlebitis Sarcoidosis Lightheadedness Lymphadenopathy Insomnia 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 Hyperlipidemia Nicotine dependence Medical History Encounter for pre-operative examination Osteoarthritis of left hip Depression Sarcoidosis stable Superficial thrombosis of leg right-several yrs ago Surgical History H/O repair of left rotator cuff History of arthroscopy of hip left History of bronchoscopy 1990s-reaction to training agent for work-sarcoidosis diagnosed at that time Status post right hip replacement S/P colonoscopy Family History Father Hypertension Macular degeneration Aunt Migraine Grandmother Colorectal cancer Denies family history of Breast cancer Social History Smoking Status: Former smoker Tobacco Type: Smokeless Tobacco (Dip or Chew) Second Hand Exposure: No; Do You Dip or Chew Tobacco: Yes ("once in awhile per pt"); Hx Alcohol Use: No Hx Substance Use: No Preferred Language: Armenian Communication Ability: Effective Visual Impairment: No Limitations Hearing Ability: Normal Mercury Cracking Tester Required: No Beliefs That Will Affect Care: None marital status: Current Living Situation: Spouse Current Living Situation Comment: , son, grandson current occupational status: retired How many Children do You have: 2 Other Information That Helps Us Care for You: No Feels Safe at Home: Yes Safety Concerns: Feels Safe At This Time Childhood Exposure to Second-Hand Smoke: No Diet: regular caffeine: Yes during the past year weight has: remained stable Dental Care, Regularly: Yes Physical Activity Frequency: 5-6 Times per Week Physical Activity Frequency Comment: bicycling Seatbelt Use: always Sunscreen Use: Yes Assistive Devices: None Review of Systems Review of Systems: All systems reviewed & are unremarkable except as noted in HPI & below Physical Exam Physical Exam: General: patient resting comfortably, NAD, non-toxic in appearance, AA&O x 4 Skin: warm, dry, intact, no rashes or lesions HEENT: NC/AT, PERRL, EOMI, anicteric sclera, conjunctiva without injection, external ear normal to inspection and nontender, nares patent, moist mucus membranes, dentition intact, no oropharyngeal lesions, neck supple, trachea midline, no LAD, no thyromegaly, no JVD Heart: +S1/S2, regular, no m/r/g Lungs: equal air entry bilaterally, no rales/rhonchi/wheezes Abd: +BS, soft, NT/ND, no masses/organomegaly/ascites, + left flank pain Ext: warm, 2+ pulses in UE/LE bilaterally, no clubbing/cyanosis or edema Neuro: nonfocal, patient AA&O x 4, speech intact, no facial droop, moving all extremities on command with equal strength 5/5 Results & Data Results & Data Vital Signs (Past 12 Hours) Vital Signs Temp Pulse Resp BP Pulse Ox O2 Del Method 01/04/24 05:00 57 L 20 135/72 97 Room Air 01/04/24 04:33 62 22 141/64 H 94 Room Air 01/04/24 04:06 59 L 20 162/99 H 94 Room Air 01/04/24 03:54 63 01/04/24 03:11 36.6 C 61 16 172/93 H 94 Room Air Laboratory Results Laboratory Results WBC 9.97 K/ul (4.8-10.8) 01/04/24 03:26 RBC 5.04 M/uL (4.70-6.10) 01/04/24 03:26 Hgb 15.0 g/dl (14.0-18.0) 01/04/24 03:26 Hct 44.5 % (42.0-52.0) 01/04/24 03:26 MCV 88.3 fL (80.0-100.0) 01/04/24 03:26 MCH 29.8 pg (25.0-34.0) 01/04/24 03:26 MCHC 33.7 g/dL (32.0-36.0) 01/04/24 03:26 RDW Std Deviation 40.0 fL (36.4-46.3) 01/04/24 03:26 RDW Coeff of Deanna 12.4 % (11.5-14.5) 01/04/24 03:26 Plt Count 189 K/uL (130-400) 01/04/24 03:26 MPV 10.8 fL (9.4-12.4) 01/04/24 03:26 Immature Gran % (Auto) 0.6 % 01/04/24 03:26 Neut % (Auto) 83.2 % 01/04/24 03:26 Lymph % (Auto) 6.6 % 01/04/24 03:26 Dodge % (Auto) 7.4 % 01/04/24 03:26 Eos % (Auto) 1.8 % 01/04/24 03:26 Baso % (Auto) 0.4 % 01/04/24 03:26 Neut # (Auto) 8.29 K/uL (1.40-6.50) H 01/04/24 03:26 Lymph # (Auto) 0.66 K/uL (1.20-3.40) L 01/04/24 03:26 Dodge # (Auto) 0.74 K/uL (0.11-0.59) H 01/04/24 03:26 Eos # (Auto) 0.18 K/uL (0.00-0.50) 01/04/24 03:26 Baso # (Auto) 0.04 K/uL (0.00-0.20) 01/04/24 03:26 Immature Gran # (Auto) 0.06 K/uL (0.01-0.20) 01/04/24 03:26 Sodium 136 mmol/L (136-145) 01/04/24 03:26 Potassium 3.8 mmol/L (3.5-5.1) 01/04/24 03:26 Chloride 104 mmol/L (98-107) 01/04/24 03:26 Carbon Dioxide 25 mmol/L (21-32) 01/04/24 03:26 Anion Gap 7 (3-11) 01/04/24 03:26 BUN 26 mg/dl (6-23) H 01/04/24 03:26 Creatinine 1.65 mg/dl (0.6-1.4) H 01/04/24 03:26 Est Cr Clr Drug Dosing 52.4 ml/min 01/04/24 03:26 Est GFR ( Amer) 49.7 ml/min 01/04/24 03:26 Est GFR (Non-Af Amer) 42.9 ml/min 01/04/24 03:26 BUN/Creatinine Ratio 15.8 (10-20) 01/04/24 03:26 Glucose 120 mg/dl (70-99(Fasting)) H 01/04/24 03:26 Calcium 9.0 mg/dl (8.6-10.3) 01/04/24 03:26 Total Bilirubin 0.7 mg/dl (0.2-1.0) 01/04/24 03:26 AST 17 U/L (13-39) 01/04/24 03:26 ALT 27 U/L (7-52) 01/04/24 03:26 Alkaline Phosphatase 112 U/L (34-104) H 01/04/24 03:26 Total Protein 6.8 gm/dl (6.0-8.3) 01/04/24 03:26 Albumin 4.5 gm/dl (3.4-5.0) 01/04/24 03:26 Globulin 2.3 gm/dl (2.5-4.0) L 01/04/24 03:26 Albumin/Globulin Ratio 2.0 (0.9-2) 01/04/24 03:26 Lipase 28 U/L (11-82) 01/04/24 03:26 Urine Color Yellow 01/04/24 03:20 Urine Appearance Clear (Clear) 01/04/24 03:20 Urine pH 5.5 (4.5-7.5) 01/04/24 03:20 Ur Specific [place] 1.025 (1.000-1.030) 01/04/24 03:20 Urine Protein Negative (Negative) 01/04/24 03:20 Urine Glucose (UA) Negative (Negative) 01/04/24 03:20 Urine Ketones Negative (Negative) 01/04/24 03:20 Urine Blood Negative (Negative) 01/04/24 03:20 Urine Nitrite Negative (Negative) 01/04/24 03:20 Urine Bilirubin Negative (Negative) 01/04/24 03:20 Urine Urobilinogen Negative (Negative) 01/04/24 03:20 Ur Leukocyte Esterase Negative (Negative) 01/04/24 03:20 PG Care Time/CCT Total # of Minutes Spent Total Time Spent with Patient: Total time spent is greater than 50% in coordination of care (as documented) at patient's floor/unit and/or counseling patient: Coding Level of Care Code 38737 INT INP/OBS CARE 255MIN Diagnoses Nephrolithiasis N20.0
[2024-01-04] MEDS ORDERED: ACETAMINOPHEN 325 MG TAB PO PRN (05:30)
[2024-01-04] MEDS ORDERED: ONDANSETRON INJ 2 MG/ML 2 ML VIAL IV PRN ×2 (05:30→10:17)
[2024-01-04] MEDS: LACTATED RINGER'S 1,000 ML IV SCH (05:45)
[2024-01-04] MEDS: KETOROLAC TROMETHAMINE 15 MG/ML VIAL IV PRN (05:46)
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
[2024-01-04] MEDS ORDERED: traZODone HCL 50 MG TAB PO PRN (06:49)
--- NOTE | 2024-01-04 09:44 | Urology Progress Note ---
Date of Service January 04, 2024 Assessment & Plan (1) Hydronephrosis of left kidney: (2) Left nephrolithiasis: Plan: Follow-up of 1 cm left renal pelvis stone with hydronephrosis Patient afebrile and hemodynamically stable Labs reviewedcreatinine 1.65, WBC 9.97 Urine culture prelim with no growth He reports pain is has improved since arrival Discussed options for stone management including left ureteral stent placement today versus discharge to home with plan to keep scheduled outpatient procedure if pain is controlled Ureteral stents were discussed in detail After discussion, he would like to proceed with left ureteral stent placement today Proceed to OR for cystoscopy and left ureteral stent placement Risk and benefits of procedure to be reviewed with patient by Dr. Dilma Moon n.p.o. for procedure Will cover with Ancef preoperatively Continue with supportive care Admission and Anticipated Discharge Date Admission Date: January 04, 2024 Supervising Physician Co-Signing Physician Notes Was able to get a room and staff for possible treatment of stone so we will proceed with cystoscopy, left retrograde pyelogram, possible left ureteroscopy with laser lithotripsy and stone extraction, left stent placement Subjective Patient seen and examined at bedside this morning. He reports pain has improved since his arrival. No nausea or vomiting at present. No fever or chills. Labs today reviewed: creatinine 1.65, WBC 9.97, Hgb 15.0. Review of Systems Constitutional: as per Subjective / HPI Genitourinary: + as per Subjective / HPI Physical Exam Constitutional: well developed and well nourished; no acute distress Respiratory: normal respiratory effort; no respiratory distress and no labored breathing Gastrointestinal (Abdomen): Inspection/Auscultation: abdomen normal to inspection Musculoskeletal: Head/Neck/Chest: normocephalic Neurologic: moves all extremities and awake Psychiatric: Orientation: alert and oriented x 3 Results & Data Vital Signs (Past 12 Hours) Vital Signs Temp Pulse Pulse Resp BP BP Pulse Ox 01/04/24 07:59 36.5 C 58 L 16 120/64 96 01/04/24 05:50 153/86 H 01/04/24 05:32 36.3 C L 51 L 18 180/99 H 97 01/04/24 05:00 57 L 20 135/72 97 01/04/24 04:33 62 22 141/64 H 94 01/04/24 04:06 59 L 20 162/99 H 94 08/28/24 03:54 63 01/04/24 03:11 36.6 C 61 16 172/93 H 94 O2 Del Method 01/04/24 07:59 Room Air 01/04/24 05:50 01/04/24 05:32 Room Air 01/04/24 05:00 Room Air 01/04/24 04:33 Room Air 01/04/24 04:06 Room Air 01/04/24 03:54 01/04/24 03:11 Room Air PG Care Time/CCT Total # of Minutes Spent Total Time Spent with Patient: Total time spent is greater than 50% in coordination of care (as documented) at patient's floor/unit and/or counseling patient: Coding Level of Care Code None Diagnoses Hydronephrosis of left kidney N13.30 Left nephrolithiasis N20.0
[2024-01-04] MEDS ORDERED: PROPOFOL IV EMULSION 10 MG/ML 20 ML VIAL IV ONE ×2 (09:56)
[2024-01-04] MEDS ORDERED: MIDAZOLAM HCL 1 MG/ML 2ML VIAL ONE (09:56)
[2024-01-04] MEDS ORDERED: LIDOCAINE 2% 2 ML VIAL/AMP(20MG/ML) INFIL ONE (09:56)
[2024-01-04] MEDS ORDERED: fentaNYL citrate PF 100 MCG/2 ML VIAL ONE (09:56)
[2024-01-04] MEDS ORDERED: HYDROmorphone INJ 1 MG/ML SYRINGE IV PRN (10:17)
[2024-01-04] MEDS ORDERED: fentaNYL citrate PF 100 MCG/2 ML VIAL IV PRN (10:17)
[2024-01-04] MEDS ORDERED: ePHEDrine sulfate 50 MG/ML AMP IV PRN (10:17)
[2024-01-04] MEDS ORDERED: ATROPINE SULFATE 0.1 MG/ML 10ML SYR IV PRN (10:17)
[2024-01-04] MEDS ORDERED: PROMETHAZINE HCL 6.25 MG in SODIUM CHLORIDE 0.9% 50 ML IV PRN (10:17)
--- NOTE | 2024-01-04 10:21 | Anesthesiology Consultation ---
Date of Service January 04, 2024 Assessment & Plan (1) Encounter for pre-operative examination: Chart Review Chart Review: Acceptable Risk for Surgery and Patient NOT seen in Pre Admission Testing Consults Requested none History Surgery Operation Date: 01/04/24 10:40 Proposed Procedures p Cystoscopy, Left Ureteral Stent Placement - Aguilar Perera MD Height/Weight Height: 5 ft 10 in Weight: 99.2 kg Allergies Allergy/AdvReac Type Severity Reaction Status Date / Time No Known Drug Allergies Allergy Unknown ` Verified 01/04/24 10:20 Medications Home Medications Medication Instructions Recorded Confirmed Last Taken multivitamin 1 tab PO QAM 05/05/20 01/04/24 07/30/23 acetaminophen 500 mg tablet 1,000 mg (2 x 500 mg) PO TID pain 07/30/23 01/04/24 07/30/23 (Tylenol Extra Strength) 30 days #180 tabs duloxetine 30 mg capsule,delayed 30 mg PO QPM #30 caps 10/31/23 01/04/24 Unknown release meloxicam 15 mg tablet 15 mg PO QAM #30 tabs 11/04/23 01/04/24 Unknown trazodone 50 mg tablet 50 mg PO HS PRN insomnia #60 tabs 11/29/23 01/04/24 Unknown ondansetron 8 mg disintegrating 8 mg PO Q8H PRN nausea and 01/02/24 01/02/24 Unknown tablet vomiting #30 tabs oxycodone-acetaminophen 5 mg-325 1 tab PO Q8H PRN pain #10 tabs 01/02/24 01/02/24 Unknown mg tablet (Percocet) phenazopyridine 200 mg tablet 200 mg PO TID 6 doses #10 tabs 01/02/24 01/02/24 Unknown (Pyridium) Active Medications Generic Name Dose Route Start Last Admin Trade Name Freq PRN Reason Stop Dose Admin Lactated Ringer's 1,000 mls @ 125 mls/hr 01/04/24 05:30 01/04/24 05:45 Lr IV 01/04/24 21:29 125 mls/hr .Q8H HERNAN Administration Ketorolac Tromethamine 15 mg 01/04/24 05:30 01/04/24 05:46 Ketorolac Tromethamine 15 Mg/Ml Vial IV 01/09/24 05:29 15 mg Q6H PRN Administration Pain Past Medical History Medical History Encounter for pre-operative examination Osteoarthritis of left hip Depression Sarcoidosis stable Superficial thrombosis of leg right-several yrs ago Past Family History Family History Father Hypertension Macular degeneration Aunt Migraine Grandmother Colorectal cancer Denies family history of Breast cancer Past Surgical History Surgical History H/O repair of left rotator cuff History of arthroscopy of hip left History of bronchoscopy 1990s-reaction to training agent for work-sarcoidosis diagnosed at that time Status post right hip replacement S/P colonoscopy Social History Smoking Status: Former smoker Do You Dip or Chew Tobacco: Yes ("once in awhile per pt") Hx Alcohol Use: No Hx Substance Use: No substance use type: crack/cocaine and opiates Substance Use Type Other:: percocet Last Used Substance Other:: Cocaine/percocet 09/03/2014, none since Physical Exam Vital Signs Last Vital Signs Temp 36.5 C 01/04/24 10:22 Pulse 47 L 01/04/24 10:22 Resp 18 01/04/24 10:22 BP 149/92 H 01/04/24 10:22 Pulse Ox 97 01/04/24 10:22 O2 Del Method Room Air 01/04/24 10:22 Testing Laboratory Results 01/04/24 03:26 01/04/24 03:26 Urine Color Yellow 01/04/24 03:20 Urine Appearance Clear (Clear) 01/04/24 03:20 Urine pH 5.5 (4.5-7.5) 01/04/24 03:20 Ur Specific [place] 1.025 (1.000-1.030) 01/04/24 03:20 Urine Protein Negative (Negative) 01/04/24 03:20 Urine Glucose (UA) Negative (Negative) 01/04/24 03:20 Urine Ketones Negative (Negative) 01/04/24 03:20 Urine Nitrite Negative (Negative) 01/04/24 03:20 Ur Leukocyte Esterase Negative (Negative) 01/04/24 03:20 Electrocardiogram Date: 07/14/23 DICTATED BY: Toy Candelario MD Test Reason : Blood Pressure : / mmHG Vent. Rate : 053 BPM Atrial Rate : 053 BPM P-R Int : 146 ms QRS Dur : 130 ms QT Int : 476 ms P-R-T Axes : 069 -17 014 degrees QTc Int : 446 ms Sinus bradycardia Right bundle branch block Abnormal ECG When compared with ECG of 13-JUN-2013 08:43, No significant change Confirmed by Toy Candelario ([id number]) on 07/14/2023 4:45:28 PM
[2024-01-04] MEDS: ceFAZolin 2000MG 2,000 MG/15 ML SYR IV ONE (10:38)
[2024-01-04] MEDS: DIATRIZOATE MEGLUMINE 30% 100ML VIAL INSTIL PRN (11:15)
--- NOTE | 2024-01-04 11:29 | Operative Report ---
[facility] Post Operative Report Pre & Post Diagnosis Operation Date: 01/04/24 10:40 Pre-Op Diagnosis: Renal Stone Post-Op Diagnosis: Renal Stone I identified the patient and participated in the time-out.: Yes Procedure Operation Date: 01/04/24 10:40 Actual Procedures p Cystoscopy, left retrograde pyelogram with radiographic interpretation, left ureteroscopy, laser lithotripsy, left ureteral stent placement(Left) - Aguilar Perera MD Surgeon Aguilar Perera MD Manager Developmental None Estimated Blood Loss 0 Findings See Below Large stone in renal pelvis. Dusted. All fragments too small to basket. Retrograde showed no extravasation. Stent in appropriate position Specimens None Drains 6Fr x 26cm Anesthesia Type General Complications none Indications 63-year-old male with a large left renal pelvis stone who came to the emergency department due to pain. No concern for infection so offered stone treatment. Description of Procedure Billing codes: 51635 [id number] with modifier 26 After informed consent was obtained, the patient was transported to the operative suite. General anesthesia was induced. They were placed in dorsal lithotomy position and prepped and draped in sterile fashion. They received preoperative Ancef. An appropriate surgical timeout was performed. A rigid cystoscope was inserted per urethra into the bladder. I turned my attention to the left ureteral orifice. A sensor wire was advanced in the upper pole of the kidney and confirmed fluoroscopically. A 10 Prydeinig dual-lumen was advanced in the distal ureter under fluoroscopic guidance and a Super Stiff wire was advanced in the upper pole of the kidney. 10 Prydeinig dual-lumen was removed. Sensor wire was tagged with a size a safety wire. Flexible ureteroscope was advanced over the wire to the level of the stone in the renal pelvis. Superstiff wire was removed. A 200 m thulium laser fiber was inserted and the stone was dusted. All fragments too small to basket and will pass spontaneously. Wan pyeloscopy revealed no stones. The flexible ureteroscope was removed under direct visualization and no residual stones nor injuries to the ureter were noted. The cystoscope was backloaded over the sensor wire and a 6 Prydeinig by 26 cm left ureteral stent was deployed with a good proximal coil in the renal pelvis confirmed fluoroscopically and a good distal coil noted in the bladder under direct visualization. The bladder was emptied and the scope was removed. This concluded the case. All counts were correct at the end of the case. I was present, scrubbed and actively participated for the entire the procedure. I attest to the content of the Intraoperative Record and any orders documented therein. Any exceptions are noted below.
--- NOTE | 2024-01-04 12:14 | Fluoroscopy Report ---
FL retrograde includes kub CLINICAL HISTORY: CYSTO COMPARISON STUDY: CT of the abdomen and pelvis December 23, 2023. FLUOROSCOPY TIME: 17 seconds. Ka, r: 7.20 mGy FLUOROSCOPIC IMAGES: 2 FINDINGS: Fluoroscopy was provided during left retrograde pyelogram with left ureteral stent insertio n. Proximal aspect of the left renal stent projects over the left collecting system. IMPRESSION: Fluoroscopy provided during left retrograde pyelogram with left ureteral stent insertion . ACT 112: Negative or not required by law. Electronically signed by: Win Boudreaux M.D. 01/04/2024 12:12 PM
[2024-01-04 13:27] VITALS: O2SAT 96
--- NOTE | 2024-01-04 14:07 | Anesthesiology Progress Note ---
Date of Service January 04, 2024 Anesthesia Post Procedure Vital Signs Vital Signs: Temp Pulse Pulse Pulse Resp BP BP 01/04/24 13:25 36.5 C 48 L 16 157/91 H 01/04/24 12:52 36.4 C L 54 L 16 176/69 H 01/04/24 12:11 36.6 C 56 L 16 171/55 H 01/04/24 12:00 36.4 C L 57 L 20 133/78 01/04/24 11:50 58 L 20 159/89 H 01/04/24 11:40 57 L 19 139/95 01/04/24 11:30 36.1 C L 65 12 158/92 H 01/04/24 10:22 36.5 C 47 L 18 149/92 H 01/04/24 07:59 36.5 C 58 L 16 120/64 01/04/24 05:50 153/86 H 01/04/24 05:32 36.3 C L 51 L 18 180/99 H 01/04/24 05:00 57 L 20 135/72 01/04/24 04:33 62 22 141/64 H 01/04/24 04:06 59 L 20 162/99 H 01/04/24 03:54 63 01/04/24 03:11 36.6 C 61 16 172/93 H Pulse Ox O2 Del Method O2 Flow Rate 01/04/24 13:25 96 Room Air 01/04/24 12:52 99 Room Air 01/04/24 12:11 96 Room Air 01/04/24 12:00 95 Room Air 01/04/24 11:50 96 Room Air 01/04/24 11:40 98 Nasal Cannula 2 01/04/24 11:30 100 Nasal Cannula 2 01/04/24 10:22 97 Room Air 01/04/24 07:59 96 Room Air 01/04/24 05:50 01/04/24 05:32 97 Room Air 01/04/24 05:00 97 Room Air 01/04/24 04:33 94 Room Air 01/04/24 04:06 94 Room Air 01/04/24 03:54 01/04/24 03:11 94 Room Air Pain Intensity Left Flank: Pain Intensity: 1 Transfer of Care Handoff Completed per policy Notes Mental Status: alert / awake / arousable and participated in evaluation Patient Amnestic to Procedure: Yes Nausea / Vomiting: adequately controlled Pain: adequately controlled Airway Patency, RR, SpO2: stable & adequate BP & HR: stable & adequate Hydration State: stable & adequate Anesthetic Complications: no major complications apparent and Pt Satisfied with anesthetic care
[2024-01-04 14:15] VITALS: BP 143/86; PULSE 50; RESP 18; TEMP 97.9
--- NOTE | 2024-01-04 19:40 | Discharge Summary ---
Discharge Summary Date of Service January 04, 2024 Principal Dx & Hospital Course #1 = Principal Diagnosis (1) Nephrolithiasis: 63yo male with severe left flank pain, known renal stone. -UA with no bacteria -Pain control with Toradol PRN, Tylenol PRN - patient prefers avoidance of narcotics for pain management if possible -Zofran PRN -Urology consultation appreciated > Patient underwent Cystoscopy, left retrograde pyelogram with radiographic interpretation, left ureteroscopy, laser lithotripsy, left ureteral stent placement(Left) with Dr. Perera on 01/04/24. > No complications noted. -Tylenol and ibuprofen as needed for discomfort. Oxycodone for break-through pain. -Flomax and oxybutynin as needed for stent discomfort. -MiraLAX [id number] as needed for constipation. -Follow-up with urology for stent removal. Patient discharged home 01/04/24. Admission HPI Per Admitting Provider Jose Glass is a 63yo male presenting with left flank pain. Patient was found to have a 1cm stone in the left renal pelvis with mild left hydronephrosis, urothelial thickening and stranding on CT imaging 12/23/23. He was seen by Urology outpatient on 01/02 24 and was planning to have elective stone removal on 01/23/24. Over the last several days he has been having increased left flank pain. Since yesterday the pain has become very severe, 9/10. He took a Percocet with some relief but woke again from sleep at 01:30 with severe pain, nausea. He denies fever, chills, dysuria. No hematuria. No additional complaints at this time. In the ER he is afebrile, HD stable, NAD Admission Exam Per Admitting Provider General: patient resting comfortably, NAD, non-toxic in appearance, AA&O x 4 Skin: warm, dry, intact, no rashes or lesions HEENT: NC/AT, PERRL, EOMI, anicteric sclera, conjunctiva without injection, external ear normal to inspection and nontender, nares patent, moist mucus membranes, dentition intact, no oropharyngeal lesions, neck supple, trachea midline, no LAD, no thyromegaly, no JVD Heart: +S1/S2, regular, no m/r/g Lungs: equal air entry bilaterally, no rales/rhonchi/wheezes Abd: +BS, soft, NT/ND, no masses/organomegaly/ascites, + left flank pain Ext: warm, 2+ pulses in UE/LE bilaterally, no clubbing/cyanosis or edema Neuro: nonfocal, patient AA&O x 4, speech intact, no facial droop, moving all extremities on command with equal strength 5/5 Discharge Exam General: No acute distress, nondiaphoretic, well-developed, well-nourished. Skin: The skin was without rashes, erythema, edema, or bruising. Cardiac: Regular rate and rhythm without murmurs gallops or rubs. Pulm: Clear to auscultation bilaterally without wheezes, rales or rhonchi. No retractions or accessory muscle use. Abdominal: Positive bowel sounds x 4. Soft, nontender, without masses or organomegaly. No guarding or rebound tenderness. Neuro: A&O x3. No focal neurological deficits. Discharge Plan Discharge Items Patient Disposition: Home - Self-Care Reason For Visit: RENAL STONE Discharge Diagnosis: Left-sided nephrolithiasis status post Cystoscopy, left retrograde pyelogram with radiographic interpretation, left ureteroscopy, laser lithotripsy, left ureteral stent placement(Left) - Aguilar Perera MD Activity: Per Instructions section Non-emergency contact: Urologist Call non-emergency contact if: you have any medication questions, your symptoms worsen, your pain is not controlled and you have a fever Follow-up/Referrals: Julianne Pfeiffer CRNP [Primary Care Provider] - 01/10/24 2:00 pm Diet: Regular Addtl Attending Provider Instructions: -Take Tylenol and ibuprofen as needed for discomfort. Oxycodone for break- through pain -Flomax and oxybutynin as needed for stent discomfort. Oxybutynin can cause dry mouth, dry eyes and constipation. Take MiraLAX [id number] as needed for constipation. -If you don't have any discomfort, you do not have to take any of these medications -Normal to see blood in your urine while stent in place. As long as you are able to urinate, this is okay. -There are no restrictions while a stent is in place. Call with worsening pain or fevers. -You will get a call to schedule an appointment to have your stent removed in clinic. While you have a ureteral stent in place: Some discomfort is normal. Certain movements may trigger pain or a feeling that you need to urinate. You may also feel mild soreness or pressure before or during urination. These symptoms should go away a few days after the stent is removed. Your urine may be slightly pink or red. This is due to bleeding caused by minor irritation from the stent. This may happen on and off while you have the stent, it is not harmful and is to be expected. Medication to help minimize discomfort or bladder spasms, or to prevent infection may be prescribed. Take this as directed. Drink plenty of fluids to help flush out your urinary tract. If you go home with a catheter, wash with soapy water and a fresh washcloth twice daily. We recommend mild bar soap such as Dial or Dove. When to call [facility] at [phone]: Your urine contains heavy blood clots You are constantly leaking urine Fever of 101F or higher, chills, nausea, or vomiting Your pain is not relieved with medication The end of the stent comes out of your urethra Pending Studies at Discharge: No Stand-Alone Forms: My [facility] Photo[employer], Smoking Cessation Medications and DC Order Prescriptions: New tamsulosin [Flomax] 0.4 mg capsule 0.4 mg PO DAILY Qty: 10 0RF oxybutynin chloride 5 mg tablet extended release 24hr 5 mg PO DAILY Qty: 10 0RF Continued acetaminophen [Tylenol Extra Strength] 500 mg tablet 1,000 mg PO TID 30 Days Qty: 180 0RF Rx Instructions: Take 3 times per day to lessen pain. duloxetine 30 mg capsule,delayed release(DR/EC) 30 mg PO QPM Qty: 30 5RF meloxicam 15 mg tablet 15 mg PO QAM Qty: 30 5RF trazodone 50 mg tablet 50 mg PO HS PRN (Reason: insomnia) Qty: 60 5RF ondansetron 8 mg tablet,disintegrating 8 mg PO Q8H PRN (Reason: nausea and vomiting) Qty: 30 0RF phenazopyridine [Pyridium] 200 mg tablet 200 mg PO TID Qty: 10 0RF oxycodone-acetaminophen [Percocet] 5-325 mg tablet 1 tab PO Q8H PRN (Reason: pain) Qty: 10 0RF multivitamin Tablet 1 tab PO QAM Discharge Orders: Discharge Order (Routine); Ordered 01/04/24 Ordered By: Ana Cheng/Other Patient Handouts: Having a Ureteral Stent Admission Data Admit Date/Time: 01/04/24 05:07 Attending Provider: Jose Boss Admit Provider: Maria Ines Chaudhari Primary Care Provider: Julianne Pfeiffer Other Providers: Maria Ines Chaudhari; Moise Stock Other Interventions: Discharge Summary Assessment (RN) Last Done: 01/04/24 14:47 Hospital Stay Data Consultations 01/04/24 05:18 ED Decision to Admit Stat 01/04/24 05:30 Consult Urology Routine Procedures Performed Operation Date: 01/04/24 10:40 Actual Procedures p Cystoscopy, Left Ureteral Stent Placement,(Left) - Aguilar Perera MD s Laser Destruction of Stone(Left) - Aguilar Perera MD Diagnostic Imagining Performed Retrograde Pyelogram 01/04/24 10:00 FL retrograde includes kub CLINICAL HISTORY: CYSTO COMPARISON STUDY: CT of the abdomen and pelvis December 23, 2023. FLUOROSCOPY TIME: 17 seconds. Ka, r: 7.20 mGy FLUOROSCOPIC IMAGES: 2 FINDINGS: Fluoroscopy was provided during left retrograde pyelogram with left u reteral stent insertion. Proximal aspect of the left renal stent projects over the left collecting system. IMPRESSION: Fluoroscopy provided during left retrograde pyelogram with left ureteral stent insertion. ACT 112: Negative or not required by law. Electronically signed by: Win Boudreaux M.D. 01/04/2024 12:12 PM Pending Results Patient Have Any Pending Studies at Discharge: No Discharge Instructions Given to Patient (Per Discharging Provider) -Take Tylenol and ibuprofen as needed for discomfort. Oxycodone for break- through pain -Flomax and oxybutynin as needed for stent discomfort. Oxybutynin can cause dry mouth, dry eyes and constipation. Take MiraLAX [id number] as needed for constipation. -If you don't have any discomfort, you do not have to take any of these medications -Normal to see blood in your urine while stent in place. As long as you are able to urinate, this is okay. -There are no restrictions while a stent is in place. Call with worsening pain or fevers. -You will get a call to schedule an appointment to have your stent removed in clinic. While you have a ureteral stent in place: Some discomfort is normal. Certain movements may trigger pain or a feeling that you need to urinate. You may also feel mild soreness or pressure before or during urination. These symptoms should go away a few days after the stent is removed. Your urine may be slightly pink or red. This is due to bleeding caused by minor irritation from the stent. This may happen on and off while you have the stent, it is not harmful and is to be expected. Medication to help minimize discomfort or bladder spasms, or to prevent infection may be prescribed. Take this as directed. Drink plenty of fluids to help flush out your urinary tract. If you go home with a catheter, wash with soapy water and a fresh washcloth twice daily. We recommend mild bar soap such as Dial or Dove. When to call [facility] at [phone]: Your urine contains heavy blood clots You are constantly leaking urine Fever of 101F or higher, chills, nausea, or vomiting Your pain is not relieved with medication The end of the stent comes out of your urethra Total Time Total Time Spent Total Time Spent (In Minutes): Greater than 30 minutes spent completing this discharge process including direct patient care, medication reconciliation, documentation, review of labs and images, and coordination of care. Coding Level of Care Code 30379 INP/OBS DISCH >30 MIN Diagnoses Nephrolithiasis N20.0
[2024-01-04] MEDS ORDERED: DULoxetine HCL 30 MG CAP PO SCH (21:00)
== END 2024-01-04 15:41 | disposition home or self-care (01) ==
LOC: ED 03:09 → INTOOBSV 05:07 → 3W 05:07 → SUATTDRO 05:07 → 3W 05:23